=== PATIENT | male | born 1940 ===

== ENCOUNTER 2021-04-08 00:15 | Emergency (ER) | payer SELFPAY ==
[~2021-04-08] VITALS: Wt 95.3 kg
[2021-04-08] MEDS ORDERED: FLONASE ALLERG9.9 ML NAS (00:37)
[2021-04-08] MEDS ORDERED: APRESOLINE10 MG PEG (00:38)
[2021-04-08] MEDS ORDERED: NATURE'S BLEND F1 MG PEG (00:38)
[2021-04-08] MEDS ORDERED: LIPITOR20 MG PEG (00:39)
[2021-04-08] MEDS ORDERED: LEVEMIR100 UNIT/1 SC (00:39)
[2021-04-08] MEDS ORDERED: Ipratropium Brom3 ML INH (00:39)
[2021-04-08] MEDS ORDERED: ATIVAN0.5 MG PEG (00:40)
[2021-04-08] MEDS ORDERED: LOVENOX30 MG/0.3 SC (00:40)
[2021-04-08] MEDS ORDERED: LOPRESSOR25 MG PEG (00:40)
== END 2021-04-08 01:24 ==
LOC: ED 00:15
DX: I46.9 Cardiac arrest, cause unspecified (principal); Z79.899 Other long term (current) drug therapy